=== PATIENT | female | born 1970 | race Caucasian/White ===

== ENCOUNTER 2016-11-19 22:05 | Observation (INO) ==
[2016-11-19] MEDS ORDERED: NS 500 ML IV ONE (22:45)
[2016-11-19] MEDS ORDERED: ZOFRAN IV ONE (22:45)
[2016-11-19] MEDS ORDERED: TORADOL IV ONE (22:45)
[2016-11-19] MEDS ORDERED: MORPHINE IV ONE (22:45)
[2016-11-19 23:20] LABS: MANUAL DIFF NEEDED? NO
[2016-11-19 23:23] LABS: BASO% 0.3 % (0.0-0.8); HEMATOCRIT 37.1 % (37.0-47.0); HEMOGLOBIN 12.6 g/dL (12.0-16.0); IMM GRAN# 0.02 X1000 (0.0-0.04); IMM GRAN% 0.2 % (0.0-0.5); LYMPH# 2.13 X1000 (1.2-3.4); LYMPH% 21.7 % (20.5-51.1); MCH 30.8 PG (27-31); MCV 90.7 FL (81-99); MONO# 0.79 X1000 (0.11-0.59); MONO% 8.1 % (1.7-9.3); MPV 10.2 FL (7.4-10.4); NEUT% 68.7 % (42.2-75.2); PLT 298 X1000 (130-400); RBC 4.09 XMIL (4.2-5.4)
--- NOTE | 2016-11-19 23:27 | Diag Imaging Result Doc PS360 ---
EXAM: CT ABDOMEN AND PELVIS WITHOUT CONTRAST HISTORY: Right lower quadrant pain TECHNIQUE: Dose reduction protocol COMPARISON: None. FINDINGS: Normal noncontrasted liver, spleen, and pancreas. No calcified gallstones or adjacent inflammation. Normal adrenal glands. No perinephric inflammation. No renal stones or hydronephrosis. Normal aorta. The appendix is distended with a diameter of at least 10 mm. There are adjacent inflammatory changes. No adjacent free air or abscess. No bowel obstruction. There is stool throughout the colon. The urinary bladder is moderately distended and appears normal. Normal uterus and ovaries. IMPRESSION: 1.Acute appendicitis 2.Constipation 3.Dr. Jarvis was called in the emergency room at 11:20 PM Electronically signed by Ab Cueva 11/19/2016 11:24 PM
[2016-11-19] MEDS ORDERED: NS 1,000 ML IV ONE (23:36)
[2016-11-19] MEDS ORDERED: MORPHINE IV PRN (23:36)
[2016-11-19] MEDS ORDERED: ZOFRAN IV PRN (23:36)
[2016-11-19 23:40] LABS: AGAP 13; ALBUMIN 4.1 g/dL (3.5-5.0); ALKALINE PHOSPHATASE 47 U/L (32-104); BUN 6 mg/dL (8-22); CALCIUM 8.5 mg/dL (8.8-10.2); CHLORIDE 103 mmol/L (98-107); COSMO 281; GOT 23 U/L (10-30); GPT 20 U/L (10-36); POTASSIUM 3.3 mmol/L (3.5-5.1); SODIUM 142 mmol/L (136-145); TCO2 26 mmol/L (25-35); TOTAL BILIRUBIN 1.23 mg/dL (0.20-1.00); TOTAL PROTEIN 6.7 g/dL (6.3-8.3)
[2016-11-20] MEDS ORDERED: ZOSYN 3.375 GM/NS 3.375 GM/50 ML IVPB ONE (00:33)
[2016-11-20] MEDS ORDERED: ZOSYN 3.375 GM/NS 3.375 GM/50 ML IVPB IV ONE (01:14)
[2016-11-20 02:03] LABS: URINE CULTURE NEEDED? NO; URINE MICRO REVIEW NEEDED? NO; URINE SOURCE CLEAN CATCH
[2016-11-20 02:07] LABS: BILIRUBIN URINE NEGATIVE (NEGATIVE); BLOOD URINE NEGATIVE (NEGATIVE); COLOR YELLOW; GLUCOSE URINE NEGATIVE (NEGATIVE); LEUKOCYTES URINE NEGATIVE (NEGATIVE); NITRITE URINE NEGATIVE (NEGATIVE); PROTEIN URINE NEGATIVE (NEGATIVE); SP GRAVITY URINE 1.006; TURBIDITY URINE CLEAR (CLEAR); UROBILINOGEN URINE NORMAL (NORMAL)
[2016-11-20 02:08] LABS: UR EPITHELIAL CELLS <10 /HPF (<10); URINE BACTERIA 1+ /HPF; URINE RBC <10 /HPF (<10); URINE WBC <10 /HPF (<10)
[2016-11-20] MEDS: ZOSYN 3.375 GM/NS 3.375 GM/50 ML IVPB IV SCH ×2 (02:40→08:48)
[2016-11-20] MEDS ORDERED: SENSORCAINE 0.25%/EPI 1:200,000 ONE (08:16)
[2016-11-20] MEDS ORDERED: LR 1,000 ML ONE (08:16)
[2016-11-20] MEDS ORDERED: QUELICIN (DOSE) ONE (08:17)
[2016-11-20] MEDS ORDERED: FENTANYL ONE (08:17)
[2016-11-20] MEDS ORDERED: DIPRIVAN 1% ONE (08:18)
[2016-11-20] MEDS ORDERED: VERSED ONE (08:30)
[2016-11-20] MEDS ORDERED: ROBINUL ONE (09:07)
[2016-11-20] MEDS ORDERED: OFIRMEV 1000 MG/ISOTONIC SOLN 1,000 MG/100 ML BOTTLE ONE (09:18)
[2016-11-20] MEDS ORDERED: NEOSTIGMINE ONE (09:25)
[2016-11-20] MEDS ORDERED: ZOFRAN ONE (09:32)
[2016-11-20] MEDS ORDERED: NORCO-7.5 PO PRN (10:30)
--- NOTE | 2016-11-20 10:49 | HISTORY AND PHYSICAL ---
CHIEF COMPLAINT: Abdominal pain. HISTORY OF PRESENT ILLNESS: This is a 46-year-old female with acute onset of right lower quadrant pain yesterday morning. It is constant, worsened to direct palpation, lessened with lying still with decreased appetite. She denies nausea, vomiting, fever, chills, diarrhea or constipation. PAST MEDICAL HISTORY: None. PAST SURGICAL HISTORY: Uterine ablation and a bladder sling. ALLERGIES: Benzoyl peroxide. HOME MEDICINES: Amitriptyline 25 mg p.o. at bedtime, minocycline 100 mg p.o. daily, Singulair 10 mg p.o. at bedtime. FAMILY HISTORY: Reviewed and noncontributory. SOCIAL HISTORY: She denies tobacco, alcohol or illicit drug use. She is currently working on her master's in [employer] and lives with her daughters. REVIEW OF SYSTEMS: Ten systems reviewed and negative except as noted above. PHYSICAL EXAMINATION: VITAL SIGNS: Temperature 98.6 degrees, pulse 77, respirations 16, blood pressure 129/75, O2 saturation 100%. GENERAL: Well-developed, well-nourished female, in no distress who looks her stated age. HEENT: Normocephalic, atraumatic. Extraocular muscles intact. Pupils equal, round, reactive to light. Sclerae anicteric. NECK: Supple. No thyromegaly. CV: Regular rate and rhythm. RESPIRATORY: Bilateral equal breath sounds. No work of breathing. GASTROINTESTINAL: Soft, nondistended. No organomegaly or mass. No hernia. She is focally tender in the right lower quadrant without rebound or guarding. SKIN: Warm and dry. No rash. MUSCULOSKELETAL: Moves all extremities equally and well. EXTREMITIES: No clubbing, cyanosis, or edema. LABORATORY: White blood cell count 9.8, hemoglobin 12.6, platelet count 298,000. Metabolic profile reviewed and notable only for total bilirubin of 1.2. Urinalysis was reviewed in and negative. IMAGING: CT of the abdomen and pelvis was reviewed by me and the appendix is distended with a diameter of 10 mm and adjacent inflammatory changes. Otherwise the intra-abdominal organs appeared normal. There may be some mild degree of constipation throughout the colon. ASSESSMENT/PLAN: A 46-year-old female with acute appendicitis. I have recommended laparoscopic appendectomy today. We discussed the risks, benefits, and alternatives including bleeding, infection, injury to surrounding organs, such as the intestines, incisional hernia, and other imponderables. She understands and agrees to proceed. cc: Feliciano Licea MD
[2016-11-20 14:30] VITALS: BP 122/82
--- NOTE | 2016-11-20 14:31 | OPERATIVE NOTE ---
PROCEDURE DATE: 11/20/2016 PREOPERATIVE DIAGNOSIS: Acute appendicitis. POSTOPERATIVE DIAGNOSIS: Acute appendicitis. PROCEDURE: Laparoscopic appendectomy. SURGEON: Feliciano Licea MD ANESTHESIA: General. ESTIMATED BLOOD LOSS: 3 mL. COMPLICATIONS: None apparent. SPECIMENS: Appendix. FINDINGS: The appendix was moderately dilated with some periappendiceal inflammation. There was no evidence of any perforation or abscess. TECHNIQUE: She was brought to the operating room and placed supine on the table. She was prepped and draped in usual sterile fashion, 0.25% Marcaine with epinephrine was used to anesthetize our incisions. An 11 mm incision was made just below the umbilicus. The fascia was exposed and incised sharply. Entry into the peritoneal cavity was obtained under direct vision with the Optiview device. Pneumoperitoneum was established. The camera was inserted. There was no evidence of injury to underlying structures. Two 5 mm incision ports were placed under direct vision 1 in the left lower quadrant and 1 in the midline suprapubic position. She was then placed in Trendelenburg and left rotation. I examined her right lower quadrant and easily found an inflamed appendix. It was somewhat adherent to the right lateral pericolic gutter. I incised the lateral peritoneal fibers with the hook cautery sweeping the appendix and cecum up off of the retroperitoneum. I then divided the appendiceal mesentery with the LigaSure device. The appendix was lifted up anteriorly. The base of the appendix was transected with an endovascular stapler. The appendix was brought out through the umbilical port site. I reinspected the dissection area. There was some minimal bloody ooze, which was cauterized. There was no further bleeding. We then desufflated the abdomen and removed the ports. The umbilical fascia was closed with a figure-of- eight 0 Vicryl. The skin was closed with running 4-0 subcuticular Monocryl and Steri-Strips. There were no apparent complications. She was awakened in stable condition and transferred to the recovery room. cc: Feliciano Licea MD
[2016-11-20] MEDS ORDERED: SINGULAIR PO SCH (21:00)
[2016-11-20] MEDS ORDERED: ELAVIL PO SCH (21:00)
--- NOTE | 2016-11-21 04:38 | PROVIDER DOCUMENTATION ---
This chart was entered by Delaney Kearney Scribe, acting as scribe for Rusty Jarvis MD. HPI-Abdominal Pain/GI Problem - General Chief Complaint: Abdominal Pain Stated Complaint: ABD PAIN Time Seen by Provider: 11/19/16 22:36 Source: patient Allergies/Adverse Reactions: Patient Allergies Allergy/AdvReac Type Severity Reaction Status Date / Time benzoyl peroxide Allergy ITCHING Verified 11/19/16 22:22 Home Medications: Home Medication List Medication Instructions Recorded Confirmed Last Taken Type Amitriptyline HCl 25 mg PO HS 11/19/16 11/19/16 11/18/16 20:00 History Minocycline HCl 100 mg PO DAILY 11/19/16 11/19/16 11/19/16 08:00 History Montelukast Sodium [Singulair] 10 mg PO HS 11/19/16 11/19/16 11/18/16 21:00 History Hydrocodone/APAP 7.5 mg/325 mg 1 each PO Q4H PRN #25 tablet 11/20/16 Unknown Rx [Lyons-7.5] - History of Present Illness-ABD Nature of Presenting Problems: 46 year old F presents to the ED with a cc of ABD pain. PT states that she woke at 0300 with lower ABD pian. Pt states that she did have a bowel movement. PT states that on her way back to her bed she had a syncopal episode. Pt states that she has had decreased appetite. Pt denies nausea, vomiting, and diarrhea. Pt states that she has had several normal bowel movements today. Abdominal Pain Onset Location: reports: RLQ Pain Radiation: reports: no radiation Quality of Pain: reports: aching Severity in ED: reports: mild Onset/Duration: reports: this morning (0300) Timing: reports: still present Last BM: this afternoon Bruising or Bleeding Gums?: No Similar Symptoms Previously?: No Recently seen or treated by another doctor?: No Review of Systems - Adult - REVIEW OF SYSTEMS - ADULT Constitutional: denies: chills, fever Eyes: reports: no symptoms reported Ears, Nose, Mouth & Throat: reports: no symptoms reported Cardiovascular: reports: no symptoms reported Respiratory: reports: no symptoms reported Gastrointestinal: reports: abdominal pain. denies: diarrhea, nausea, vomiting Genitourinary: denies: dysuria, hematuria Musculoskeletal: reports: no symptoms reported Integumentary: reports: no symptoms reported Neurological: reports: no symptoms reported Psychiatric: reports: no symptoms reported Endocrine: reports: no symptoms reported Hematologic/Lymphatic: reports: no symptoms reported Allergic/Immunologic: reports: no symptoms reported All Other Systems: Reviewed and Negative Past History - Adult - PAST MEDICAL HISTORY-ADULT Review of Records: reports: Nursing Assessment Review, Medications Reviewed Major Childhood Illnesses: reports: denies history - PRIOR SURGERIES/PROCEDURES Surgical/Procedure History: reports: other (ablasion, bladder tact and sling) - IMMUNIZATION STATUS Childhood Immunizations: See Nurse Assessment Flu Vaccine: See Nurse Assessment - SOCIAL HISTORY Smoking: non-smoker Substance Use: none/never Alcohol Use Frequency: occasionally Physical Exam-General - PHYSICAL EXAM-ADULT Initial Vital Signs Reviewed: Yes - CONSTITUTIONAL General Appearance: alert, no apparent distress - RESPIRATORY Respiratory: chest non-tender, lungs clear, normal breath sounds - CARDIOVASCULAR Cardiovascular: normal peripheral pulses, regular rate, rhythm, no edema - GASTROINTESTINAL (ABDOMEN) Abdominal Exam: soft, rebound, tenderness (RLQ), McBurney's point tenderness, other (positive heel slap) - MUSCULOSKELETAL Back Exam: normal inspection, no CVA tenderness, no vertebral tenderness - SKIN Integumentary: normal color, normal turgor, warm/dry - PSYCHIATRIC Psych/Mental Status: normal mood/affect, normal thought content, normal thought process, oriented x 3 Progress - PLAN OF CARE/RESULTS Progress/Plan/Lab Results: Vital Signs - 8 hr 11/19/16 22:15 Temperature 98.5 F Pulse Rate 70 Respiratory Rate 18 Blood Pressure 142/88 O2 Sat by Pulse Oximetry 100 Result Diagrams: 11/19/16 22:50 11/19/16 22:50 - CT/MRI 1 CT Study: Abdomen, Pelvis Impression: Abnormal CT Results: appendicitis: Dr. Cueva(radiologist) - CONSULTS/PCP/HOSPITALIST Notification #1 *Consult/PCP/Hospitalist*: Dr. Cueva(radiologist) Time Discussed: 23:21 Consult Disposition: other (appendicitis) #2 Consult: Dr. Licea(surgeon) Time Discussed: 23:23 Consult Disposition: Admit Departure - Departure Date of Disposition Decision: 11/19/16 Time of Disposition Decision: 23:07 DIAGNOSIS: Acute appendicitis Qualifiers: Acute appendicitis type: with localized peritonitis Qualified Code(s): K35.3 - Acute appendicitis with localized peritonitis Disposition: ADMITTED INPATIENT 09 Certified Medical Emergency: Emergent Condition: Stable - Critical Care Note This patient required my direct & personal management of CC.: No This chart was documented by the indicated scribe, (Delaney Kearney Scribe) and accurately reflects the services I performed and decisions made by me, Rusty Jarvis MD, as attested by the provider's signature.
[2016-11-21] MEDS ORDERED: MINOCIN PO SCH (09:00)
== END 2016-11-20 14:46 | disposition home or self-care (01) ==
LOC: ED 22:05 → 4N 22:05
PROVIDERS: ADMIT Surgery; ATTEND Surgery